=== PATIENT | male | born 1940 | race Caucasian/White ===

== ENCOUNTER → 2016-08-23 | Outpatient (CLI) | payer OTHER ==
[~2016-08-23] MED LIST: ACET-1256 PO; CLX/20 PO; HYDR-5688 PO; NRN100 PO; PANT40TA PO; PRS5 PO; TAMS0.4C38 PO
[2016-08-23 15:19] LABS: ALT/SGPT 24 U/L (12-78); AST/SGOT 16 U/L (15-37); BLOOD UREA NITROGEN 17 mg/dl (7-18); BUN/CREATININE RATIO 17.3 (10-20); CALCIUM 9.3 mg/dl (8.5-10.1); CARBON DIOXIDE 27 mmol/L (21-32); CHLORIDE 106 mmol/L (98-107); CREATININE 0.99 mg/dl (0.60-1.40); GLUCOSE 98 mg/dl (70-99); POTASSIUM 3.9 mmol/L (3.5-5.1); SODIUM 140 mmol/L (136-145)
[2016-08-23 15:21] LABS: CHOLESTEROL 183 mg/dl (0-200); CHOLESTEROL/HDL RATIO 4.2; HDL CHOLESTEROL 44 mg/dl; LDL CHOLESTEROL CALCULATED 107 mg/dl; TRIGLYCERIDES 161 mg/dl (0-150); VERY LOW DENSITY LIPOPROT CALC 32 mg/dl
== END | disposition home or self-care (01) ==
LOC: C.LABMFLN 09:00
PROVIDERS: ATTEND Family Medicine
DX: E78.00 Pure hypercholesterolemia, unspecified (principal); G62.9 Polyneuropathy, unspecified

== ENCOUNTER → 2017-03-30 | Outpatient (CLI) | payer OTHER ==
--- NOTE | 2017-03-30 13:44 | DIAGNOSTIC IMAGING REPORT ---
RIGHT SHOULDER MRI HISTORY: RT SHOULDER PAIN TECHNIQUE: Multiplanar multisequence MRI of the right shoulder was performed without contrast. COMPARISON STUDY: None. FINDINGS: AC joint: Moderate AC joint arthrosis demonstrated by cartilage space narrowing and marginal osteophytes. Rotator cuff: Evidence for prior repair of the distal supraspinatus tendon. There is a increase signal within the residual infraspinatus and supraspinatus tendons consistent with tendinopathy. There is also focal full-thickness split tear involving the proximal supraspinatus tendon which measures 15 x 15 mm. Small focal full-thickness tears of the anterior fibers of the distal infraspinatus tendon. The teres minor tendon is grossly intact. There is near complete fatty atrophy of the subscapularis muscle with irregularity of the subscapularis tendon suggestive of chronic tears. There is moderate fatty atrophy of the infraspinatus and supraspinatus muscles. Labrum: Irregularity and abnormal signal within the superior labrum consistent with a SLAP tear. Biceps tendon: The long head of the biceps tendon is identified within the proximal bicipital groove but does not extend into the intra-articular location. Therefore, this is consistent with a full-thickness tear with retraction. Bones: No acute fracture or dislocation. Osteophytes at the glenohumeral joint. Mild superior subluxation of the humeral head in relation to the glenoid consistent with a chronic rotator cuff injury. This results in narrowing of the subacromial space. Cartilage: Near full-thickness cartilage loss within the superior glenoid. There is also full-thickness cartilage loss throughout the majority of the humeral head. Miscellaneous: Trace joint fluid. IMPRESSION: 1. Evidence for prior rotator cuff repair with screws fixing the distal supraspinatus tendon. 2. Focal split tear within the proximal supraspinatus tendon. 3. Small focal full-thickness tears of the distal infraspinatus tendon. 4. Chronic tear/tendinopathy of the subscapularis tendon. 5. SLAP tear. 6. 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 7. Full-thickness tear of the long head of the biceps tendon which is retracted into the proximal bicipital groove. Electronically signed by: Kelvin Guidry M.D. 03/30/2017 1:42 PM Dictated Date/Time: 03/30/2017 1:29 PM
== END | disposition home or self-care (01) ==
LOC: C.MRIBC 12:39
PROVIDERS: ATTEND Orthopaedic Surgery
DX: M75.101 Unspecified rotator cuff tear or rupture of right shoulder, not specified as traumatic (principal); S46.811A Strain of other muscles, fascia and tendons at shoulder and upper arm level, right arm, initial encounter; S46.101A Unspecified injury of muscle, fascia and tendon of long head of biceps, right arm, initial encounter; M19.011 Primary osteoarthritis, right shoulder; X58.XXXA Exposure to other specified factors, initial encounter

== ENCOUNTER 2017-07-01 09:16 | Observation (INO) | payer OTHER ==
[2017-06-13 12:08] VITALS: BMI 27.0
--- NOTE | 2017-06-13 12:38 | PAT Medication Instructions ---
Service Date Jun 13, 2017. Current Home Medication List Acetaminophen (Tylenol), 500 MG PO HS Cyanocobalamin (Vitamin B12), 1,000 MCG PO QAM Finasteride (Proscar), 5 MG PO QAM Hydrocodone/Acetaminophen 5MG/325MG ([place] 5MG/325MG), 1 TABLET PO PRN PRN for Pain Melatonin (Melatonin Maximum Strengt), 1 TAB PO HS Pantoprazole (Protonix), 40 MG PO QAM Tamsulosin Hcl (Flomax), 1 CAP PO Q2D [Coq10], 1 TAB PO Q2D [Curcumin], 1 TAB PO QAM [Triamcinalone Acet], 1 DOSE TOP PRN Medication Instructions For Your Scheduled Surgery - Hold the following medications 2 weeks prior to surgery: [Curcumin], 1 TAB PO QAM [Coq10], 1 TAB PO Q2D - Hold the following medications 24 hours prior to surgery: [Triamcinalone Acet], 1 DOSE TOP PRN - Hold the following medications the morning of surgery: Tamsulosin Hcl (Flomax), 1 CAP PO Q2D Cyanocobalamin (Vitamin B12), 1,000 MCG PO QAM Finasteride (Proscar), 5 MG PO QAM - Take the following medications the morning of surgery with a sip of water: Pantoprazole (Protonix), 40 MG PO QAM Hydrocodone/Acetaminophen 5MG/325MG ([place] 5MG/325MG), 1 TABLET PO PRN PRN for Pain (okay to take up to4 hours prior to surgery if needed) - Take the following medications as scheduled the night before surgery: Melatonin (Melatonin Maximum Strengt), 1 TAB PO HS Hydrocodone/Acetaminophen 5MG/325MG ([place] 5MG/325MG), 1 TABLET PO PRN PRN for Pain Acetaminophen (Tylenol), 500 MG PO HS If you have any questions please call us at [phone] or [phone] or [phone]
--- NOTE | 2017-06-13 13:23 | DIAGNOSTIC IMAGING REPORT ---
CHEST 2 VIEWS ROUTINE HISTORY: 76 years-old Male pat preoperative exam. No acute chest complaints. COMPARISON: Chest radiograph 7 12/12/2014 TECHNIQUE: PA and lateral views of the chest FINDINGS: Spine one hilar silhouettes are within normal limits. Atherosclerosis of the aorta. The lungs are mildly hyperinflated. There is no pneumothorax, pleural effusion, focal airspace consolidation or overt pulmonary edema. Bones of the chest appear grossly intact. IMPRESSION: Mild hyperinflation without acute process. The above report was generated using voice recognition software. It may contain grammatical, syntax or spelling errors. Electronically signed by: Cale Mcdonald M.D. 06/13/2017 1:21 PM Dictated Date/Time: 06/13/2017 1:20 PM
[2017-06-13 14:44] LABS: BASO % 0.8 %; BASO ABS # 0.04 K/uL (0-0.2); HEMATOCRIT 47.2 % (42-52); HEMOGLOBIN 16.7 g/dL (14.0-18.0); IG# 0.01 K/uL (0.00-0.02); LYMPH % 27.3 %; LYMPH ABS # 1.36 K/uL (1.2-3.4); MEAN CELL VOLUME 89.2 fL (80-100); MEAN CORPUSCULAR HEMOGLOBIN 31.6 pg (25-34); MEAN CORPUSCULAR HGB CONC 35.4 g/dl (32-36); MONO % 8.2 %; MONO ABS # 0.41 K/uL (0.11-0.59); NEUT % 61.5 %; NEUT ABS # 3.07 K/uL (1.4-6.5); PLATELET COUNT 213 K/uL (130-400); RED CELL DISTRIBUTION WIDTH CV 12.6 % (11.5-14.5); RED CELL DISTRIBUTION WIDTH SD 40.9 fL (36.4-46.3); WHITE BLOOD COUNT 4.99 K/uL (4.8-10.8)
[2017-06-13 14:55] LABS: PTT PATIENT 25.2 SECONDS (21.0-31.0)
[2017-06-13 15:48] LABS: CALCIUM 9.8 mg/dl (8.5-10.1); CREATININE 1.06 mg/dl (0.60-1.40); POTASSIUM 5.1 mmol/L (3.5-5.1)
--- NOTE | 2017-06-30 06:50 | HISTORY & PHYSICAL EXAMINATION ---
DATE OF ADMISSION: 07/01/2017 CHIEF COMPLAINT: Cuff arthropathy of the right shoulder. HISTORY OF PRESENT ILLNESS: Arpan is a pleasant 77-year-old male presenting with a several year history of right shoulder pain. Initially, he fell back in 2013 and underwent a rotator cuff repair by Dr. Bautista. After the surgery, he did fall into his shoulder and has been having mild shoulder pain since. His shoulder pain has gotten much worse recently. MRI and clinical examination were diagnostic for rotator cuff arthropathy of the right shoulder. After failing extensive conservative treatment, he has elected to proceed with a reverse right shoulder arthroplasty. PAST MEDICAL HISTORY: Significant for GERD and BPH. MEDICATIONS: Include Protonix 40 mg daily, Flomax 0.4 mg daily, finasteride 5 mg daily, hydrocodone as needed for pain. SOCIAL HISTORY: Denies any tobacco, alcohol or IV drug use. He remains active. FAMILY HISTORY: Denies. ALLERGIES: BACTRIM AND PREDNISONE. PAST SURGICAL HISTORY: Significant for a right total knee arthroplasty in 1995, hernia repair, cervical fusion at C3-4 in 2000 and a left total knee arthroplasty in 2014. REVIEW OF SYSTEMS: He complains mostly of right shoulder pain and weakness. All other pertinent review of systems are negative. PHYSICAL EXAMINATION: GENERAL: He is a well-developed, well-nourished male in no apparent distress. HEENT: Pupils equal, round and reactive to light. Extraocular motion intact. Oral mucosa is pink and moist. HEART: Regular rate per radial pulse. LUNGS: Yelena symmetrically bilaterally with no audible breath sounds. ABDOMEN: Soft, nontender, nondistended. MUSCULOSKELETAL: On physical examination the shoulder actively has about 120 degrees of forward elevation, 100 degrees of abduction. He has 3/5 muscle strength with full can testing and close to 5/5 muscle strength with external rotation. Negative bear hug and belly press test. He has a lot of pain in the subacromial space and pain over the anterior glenohumeral joint line. IMAGING DATA: MRI imaging of the shoulder does show a re-rupture of the supraspinatus. The interspace and subscapularis appear to be intact. There is advanced osteoarthritis of the humeral head and the glenoid. There is some superior migration of the humeral head. IMPRESSION: Rotator cuff arthropathy of the right shoulder. PLAN: We will proceed with a Biomet comprehensive reverse right shoulder arthroplasty. Postoperatively, he will be placed in an arm sling and kept overnight for postoperative medical management.
[~2017-07-01] VITALS: Ht 175.3 cm; Wt 83.6 kg
[2017-07-01] VITALS (7 sets, daily range): BP systolic 119–149; BP diastolic 58–82; PULSE 53–73; TEMP 36.3–36.7; O2SAT 92–96; Ht 175.3 cm; Wt 83.6 kg
[~2017-07-01 09:16] MED LIST changes: +ACETAMINOPHEN 500 MG TAB PO SCH; +ATROPINE SULFATE 0.1 MG/ML 5ML SYR IV PRN; +CEFAZOLIN 2000MG IV PUSH 15 ML IV SCH; -CLX/20 PO; +COQ10 PO; +CURCUMIN PO; +CYAN100020 PO; +EpHEDrine SULFATE INJ 50 MG/ML AMP IV PRN; +FAMOTIDINE 20 MG TAB PO SCH; +FENTANYL CITRATE INJ 50 MCG/1 ML 2 ML VIAL IV PRN; +FINA5TAB PO; +GABAPENTIN 300 MG CAP PO SCH; +HYDROmorphone INJ 1 MG/ML SYR IV PRN; +LACTATED RINGER'S 1000ML 1,000 ML IV SCH; +LACTATED RINGER'S 1000ML IV SCH; +MELATAB2 PO; -NRN100 PO; +ONDANSETRON INJ 2 MG/ML 2 ML VIAL IV PRN; +PHENYLEPHRINE 100MCG/ML 5ML SYR IV PRN; -PRS5 PO; +ROPIVACAINE 0.5% 5 MG/ML 30 ML VIAL ONE; +ROPIVACAINE 5MG/ML 30 ML 150 MG, BUPIVACAINE 0.5% MPF INJ 30 ML, EpINEphrine HCL INJ 0.... INFIL SCH; +TRIAMCINOLONE TOP
[2017-07-01 10:02] LABS: PTT PATIENT 25.7 SECONDS (21.0-31.0)
[2017-07-01 10:12] LABS: CALCIUM 9.3 mg/dl (8.5-10.1); CREATININE 1.02 mg/dl (0.60-1.40)
[2017-07-01] MEDS ORDERED: ORTHO JOINT ANESTHETIC ONE (10:40)
[2017-07-01] MEDS ORDERED: BACITRACIN 50000 UNIT VIAL ONE (10:41)
[2017-07-01] MEDS ORDERED: FENTANYL CITRATE INJ 50 MCG/1 ML 2 ML VIAL ONE ×2 (10:49→12:30)
[2017-07-01] MEDS ORDERED: MIDAZOLAM HCL 1 MG/ML 2ML VIAL ONE (10:49)
--- NOTE | 2017-07-01 11:29 | History & Physical Bridge Note ---
H&P Re-Evaluation Bridge Note: I have examined the patient, reviewed the History & Physical and in the interval since the performance of the History & Physical I have noted the following changes of clinical significance: No changes noted
[2017-07-01] MEDS ORDERED: HYDROmorphone INJ 2 MG/ML SYR/VIAL ONE ×2 (13:12→13:24)
[2017-07-01] MEDS ORDERED: PHENYLEPHRINE 100MCG/ML 5ML SYR ONE (13:17)
[2017-07-01] MEDS ORDERED: EpHEDrine SULFATE 50MG/5ML SYR ONE (13:17)
[2017-07-01] MEDS ORDERED: LIDOCAINE HCL 2% 2 ML VIAL (20MG/ML) ONE (13:17)
[2017-07-01] MEDS ORDERED: PROPOFOL IV EMULSION 10 MG/ML 20 ML VIAL IV ONE (13:17)
[2017-07-01] MEDS ORDERED: ROCURONIUM BROMIDE 10 MG/ML 5 ML VIAL IV ONE (13:17)
[2017-07-01] MEDS ORDERED: ONDANSETRON INJ 2 MG/ML 2 ML VIAL ONE ×2 (13:17→13:43)
--- NOTE | 2017-07-01 13:17 | [facility] Post Operative Brief Note ---
Immediate Operative Summary Operative Date Jul 01, 2017. Pre-Operative Diagnosis Cuff arthropathy of the right shoulder. Post-Operative Diagnosis Cuff arthropathy of the right shoulder. Procedure(s) Performed Right Reverse Total Shoulder Arthroplasty Surgeon Dr. Singh Machine Ii Coremaker Surgeon(s) Milton Salazar PA-C Estimated Blood Loss 200cc Findings Consistent with Post-Op Diagnosis Specimens A: right humeral head Drains None Anesthesia Type General Regional Complication(s) none Disposition Disposition: Recovery Room / PACU
[2017-07-01] MEDS ORDERED: MoRPHine SULFATE 2 MG/ML CARP IV PRN (13:30)
[2017-07-01] MEDS ORDERED: CEFAZOLIN IV 2,000 MG in DEXTROSE 5% 50ML 50 ML IV SCH (13:30)
[2017-07-01] MEDS ORDERED: ONDANSETRON INJ 2 MG/ML 2 ML VIAL IV PRN (13:30)
[2017-07-01] MEDS ORDERED: SOD PHOSPHATE/SOD BIPHOSPHATE ENEMA 132 ML BTL PR PRN (13:30)
[2017-07-01] MEDS ORDERED: NALOXONE HCL 0.4 MG/1 ML VIAL/CARP IV PRN (13:30)
[2017-07-01] MEDS ORDERED: BISACODYL 10 MG SUPP PR PRN (13:30)
[2017-07-01] MEDS ORDERED: METOCLOPRAMIDE HCL INJ 5 MG/ML 2 ML VIAL IV PRN (13:30)
[2017-07-01] MEDS ORDERED: MAGNESIUM HYDROXIDE SUSP 30 ML UDC PO PRN (13:30)
[2017-07-01] MEDS ORDERED: GLYCOPYRROLATE INJ 0.2 MG/ML VIAL ONE (13:43)
[2017-07-01] MEDS ORDERED: KETOROLAC TROMETHAMINE 30 MG/ML VIAL ONE (13:43)
[2017-07-01] MEDS ORDERED: NEOSTIGMINE METHYLSULFATE 1 MG/ML 10ML VIAL ONE (13:43)
--- NOTE | 2017-07-01 13:59 | DIAGNOSTIC IMAGING REPORT ---
R SHOULDER MIN 2 VIEWS ROUTINE HISTORY: 77 years-old Male Post shoulder surgery status post right shoulder arthroplasty. Degenerative joint disease COMPARISON: Right shoulder radiographs 03/30/2017 TECHNIQUE: 2 views of the right shoulder FINDINGS: Postoperative changes from recent right shoulder reverse total joint arthroplasty. Moderate degenerative changes about the AC joint. Alignment appears satisfactory. Skin sergey are noted in addition to expected postsurgical soft tissue swelling and deep tissue air. Lung alvarez appear hypoinflated. IMPRESSION: Reverse right shoulder total joint arthroplasty with satisfactory alignment. The above report was generated using voice recognition software. It may contain grammatical, syntax or spelling errors. Electronically signed by: Cale Mcdonald M.D. 07/01/2017 1:57 PM Dictated Date/Time: 07/01/2017 1:56 PM
--- NOTE | 2017-07-01 14:14 | Anesthesiology Progress Note ---
Anesthesia Post Op Note Date & Time Jul 01, 2017 at 14:14 Vital Signs Pain Intensity: 0 Vital Signs Past 12 Hours Date Time Temp Pulse Resp B/P (MAP) Pulse Ox O2 Delivery O2 Flow Rate FiO2 07/01/17 14:03 79 18 86 07/01/17 14:03 78 18 07/01/17 14:02 151/75 07/01/17 14:01 36.3 77 20 151/75 (88) 96 Nasal Cannula 2 07/01/17 13:58 79 19 94 07/01/17 13:58 79 19 07/01/17 13:57 81 16 07/01/17 13:57 81 16 07/01/17 13:57 80 16 106/86 96 07/01/17 13:57 80 16 106/86 96 07/01/17 13:52 74 16 97 07/01/17 13:52 74 16 07/01/17 13:52 74 16 97 07/01/17 13:52 74 16 07/01/17 13:51 150/87 07/01/17 13:51 150/87 07/01/17 13:47 76 18 97 07/01/17 13:47 70 18 07/01/17 13:47 76 18 97 07/01/17 13:47 70 18 07/01/17 13:46 154/87 07/01/17 13:46 154/87 07/01/17 13:42 81 18 07/01/17 13:42 81 18 07/01/17 13:42 82 18 158/75 97 07/01/17 13:42 82 18 158/75 97 07/01/17 13:38 154/74 07/01/17 13:38 154/74 07/01/17 13:37 82 19 07/01/17 13:37 82 19 98 07/01/17 13:37 36.1 81 16 154/74 (104) 97 Oxymask 10 07/01/17 13:37 82 19 07/01/17 13:37 82 19 98 07/01/17 09:53 36.5 64 18 149/82 96 Room Air Notes Mental Status: alert / awake / arousable, participated in evaluation Pt Amnestic to Procedure: Yes Nausea / Vomiting: adequately controlled Pain: adequately controlled Airway Patency, RR, SpO2: stable & adequate BP & HR: stable & adequate Hydration State: stable & adequate Anesthetic Complications: no major complications apparent
[2017-07-01] MEDS ORDERED: IV FLUIDS COMPLETED PRN (15:45)
[2017-07-01] MEDS: POTASSIUM CHLORIDE INJ 10 MEQ in SODIUM CHLORIDE 0.9% 1000ML 1,000 ML IV SCH (16:31)
--- NOTE | 2017-07-01 16:33 | OPERATIVE REPORT ---
DATE OF OPERATION: 07/01/2017 PREOPERATIVE DIAGNOSIS: Cuff arthropathy of the right shoulder. POSTOPERATIVE DIAGNOSIS: Same. PROCEDURE: Right reverse total shoulder arthroplasty. SURGEON: Dr. Franko Singh. DIALYSIS CLINICAL MANAGER: Tomi Salazar PA-C, whose assistance was necessary for retraction and closure. ANESTHESIA: General with a right interscalene nerve block. COMPLICATIONS: None. CONDITION: Stable to PACU. IMPLANTS USED: I used a Biomet comprehensive reverse right shoulder arthroplasty system with a size 25-mm mini baseplate, a 36-mm standard eccentric glenosphere, a standard humeral tray and bearing. A 30-mm central screw and a size 15 press fit mini stem. INDICATIONS: Arpan is a pleasant 77-year-old male who has a history of previous rotator cuff repair. Unfortunately, he fell after his replacement, and has never had good motion with the shoulder. When he came to my office, an MRI showed a cuff arthropathy with tears of the supraspinatus and subscapularis. After failing conservative treatment, he elected to undergo reverse shoulder arthroplasty. DESCRIPTION OF PROCEDURE: On 07/01/2017, he arrived at [facility] for the above procedure. He was seen in the preoperative holding area and the operative extremity was identified and signed. He was given a preoperative antibiotic and a right interscalene nerve block. He was taken back to the operating room, laid on the table in supine position and put under general anesthesia. He was put into the beach chair position. The right shoulder was prepped and draped in sterile fashion. Time-out was done. The patient and the operative extremity was properly identified. A deltopectoral approach was used. Dissection was taken down through the fascia and the anterior shoulder was exposed. The long head of the biceps tendon was tenodesed to the upper border of the pec major. The subscapularis was already torn off as well as the supraspinatus. The humeral head was easily delivered out of the wound. Sequential reaming up to a size 15 reamer was done. Off that reamer, a proximal humeral resection guide was placed and the proximal humerus was resected 135 degrees of inclination and 20 degrees of retroversion. The glenoid was then exposed. Time was spent doing a complete circumferential capsular and labral release. The Biomet glenoid guide was then placed in the inferior aspect of the glenoid and a guide pin was placed at 10 degrees of inclination. A 25-mm mini baseplate was then reamed and the final baseplate was impacted into place. A single 30-mm central screw was placed and got an excellent bite. Superior and inferior locking screws were then placed. A 36-mm eccentric glenosphere was then impacted into place. The proximal humerus was exposed. Sequential broaching up to a size 15 broach was done. Off that broach, a standard humeral tray was trialed. The shoulder was reduced, brought through a full range of motion and felt to be stable. The shoulder was then dislocated and the broach was removed. The final humeral stem was then impacted into place. The humeral bearing was snapped onto the humeral tray and that was impacted onto the humeral stem. The shoulder was then reduced, brought through full range of motion and felt to be stable. There was no quality subscapularis to tenodese back to the lesser tuberosity. The surrounding soft tissues were injected with 100 mL of an orthopedic pain control cocktail. The wound was then irrigated with 3 liters normal saline solution with bacitracin. The skin was closed with 2-0 Vicryl, 3-0 V-Loc suture and sergey. He was placed in a soft dressing and a regular arm sling. He was then extubated, transferred to a litter and taken to the postanesthesia care unit in stable condition. He tolerated the procedure well. I attest to the content of the Intraoperative Record and any orders documented therein. Any exception s are noted below.
[2017-07-01] MEDS: KETOROLAC TROMETHAMINE 15 MG/ML VIAL IV. SCH (17:58)
[2017-07-01] MEDS: DOCUSATE SODIUM 100 MG CAP PO SCH (20:29)
[2017-07-01] MEDS: CEFAZOLIN IV 2,000 MG in SYRINGE 0 ML IV SCH (20:29)
[2017-07-01] MEDS ORDERED: SENNA 8.6 MG TAB PO SCH (21:00)
[2017-07-02] MEDS: KETOROLAC TROMETHAMINE 15 MG/ML VIAL IV. SCH ×2 (00:35→05:51)
[2017-07-02] MEDS: POTASSIUM CHLORIDE INJ 10 MEQ in SODIUM CHLORIDE 0.9% 1000ML 1,000 ML IV SCH (02:23)
[2017-07-02 03:46] VITALS: BP 123/62; PULSE 74; TEMP 36.7; O2SAT 90
[2017-07-02] MEDS: CEFAZOLIN IV 2,000 MG in SYRINGE 0 ML IV SCH (04:15)
[2017-07-02 06:14] LABS: HEMOGLOBIN 14.5 g/dL (14.0-18.0); MEAN CELL VOLUME 89.1 fL (80-100); MEAN CORPUSCULAR HEMOGLOBIN 31.5 pg (25-34); MEAN CORPUSCULAR HGB CONC 35.4 g/dl (32-36); MEAN PLATELET VOLUME 9.6 fL (7.4-10.4); PLATELET COUNT 205 K/uL (130-400); RED CELL DISTRIBUTION WIDTH CV 12.7 % (11.5-14.5); WHITE BLOOD COUNT 10.03 K/uL (4.8-10.8)
[2017-07-02 06:49] LABS: CALCIUM 8.9 mg/dl (8.5-10.1)
[2017-07-02 08:19] VITALS: BP 138/85; PULSE 83; O2SAT 96
[2017-07-02] MEDS: DOCUSATE SODIUM 100 MG CAP PO SCH (08:51)
[2017-07-02] MEDS ORDERED: TAMSULOSIN HCL 0.4 MG CAP PO SCH (09:00)
[2017-07-02] MEDS ORDERED: PANTOprazole SOD 40 MG TAB PO SCH (09:00)
[2017-07-02] MEDS ORDERED: FINASTERIDE 5 MG TAB PO SCH (09:00)
[2017-07-02] MEDS ORDERED: MULTIVITAMIN TAB PO SCH (09:00)
[2017-07-02] MEDS ORDERED: HYDR-5688 PO (10:23)
--- NOTE | 2017-07-02 10:24 | Discharge Instructions ---
Discharge Instructions Date of Service Jul 02, 2017. Admission Reason for Admission: Right Shoulder Degenerative Joint Disease Discharge Discharge Diagnosis / Problem: Right Reverse Shoulder Discharge Goals Goal(s): Decrease discomfort, Improve function Activity Recommendations Activity Limitations: as noted below . Instructions / Follow-Up Instructions / Follow-Up Activity and Therapy Recommendations: * Wear your sling for 3 weeks, unless otherwise instructed. You may remove your sling to shower and to dress, but otherwise, you should be in your sling at all times, including while sleeping * The shoulder replacement is very stable and you can use your hand while in the sling * Physical Therapy should start about 3-5 days from your day of surgery. Therapy will last about 8-12 weeks * You were shown a series of exercises in the hospital. Do these exercises daily including the exercises you were shown in physical therapy. Medications: * Narcotic You will likely be sent home from the hospital with a prescription for the narcotic pain medication that worked best throughout your stay. * Other medications may be prescribed for specific circumstances. If you have any questions, please call the office at . * Resume previous home medications unless otherwise instructed Dressing Care: If the incision is not draining then you may leave the sergey open to air. If there is a little bit of drainage or if the sergey are getting stuck on your clothing then cover the incision with a dry dressing. The sergey will be removed at your 2 week follow-up appointment. Showering: You may shower 5 days from the day of surgery. Let the soapy shower water run over the sergey and pat them dry. Do not scrub or soak the incision. Things To Watch For: * Drainage from the incision site that occurs more than one week after your surgery. * Increased redness at the incision site. * Fever above 102 degrees Fahrenheit. * Unusual chest pain or shortness of breath. * Call [facility] at with any of the above problems Follow-Up Visit: Follow-up with Dr. Singh 2 weeks after your day of surgery. An appointment was probably scheduled when you signed-up for surgery in the office. If you have any questions call Office Instructions: More detailed instructions as well as Frequently Asked Questions were provided in a folder by our office when you signed-up for surgery. Please review these instructions when you get home. If you have any further questions or concerns, please feel free to call the office at [phone] Current Hospital Diet Patient's current hospital diet: Regular Diet Discharge Diet Recommended Diet: Regular Diet Procedures Procedures Performed: Right Reverse Total Shoulder Arthroplasty Pending Studies Studies pending at discharge: no Medical Emergencies . Who to Call and When: Medical Emergencies: If at any time you feel your situation is an emergency, please call 911 immediately. . Non-Emergent Contact Non-Emergency issues call your: Surgeon Call Non-Emergent contact if: wound has increased drainage, wound has increased redness . "Provider Documentation" section prepared by Franko Singh. .
[2017-07-02] MEDS: HYDROCODONE/ACETAMIN 5/325MG TAB PO PRN ×2 (10:31→11:06)
[2017-07-02 10:42] VITALS: BP 138/85; PULSE 83; TEMP 36.7; O2SAT 96
--- NOTE | 2017-07-02 10:50 | PROGRESS NOTE ---
DATE: 07/02/2017 CHIEF COMPLAINT: Status post right reverse shoulder arthroplasty, postop day #1. PROGRESS: He was seen and examined at bedside today. Overall, he is doing very well. He has very little pain in the shoulder. He did not get much sleep last night. He has no other complaints. PHYSICAL EXAMINATION: RIGHT SHOULDER: He is wearing a sling as instructed. His dressing is clean and dry. H has a little ecchymosis around the shoulder. His radial, median and ulnar nerves are checked and intact. His axillary nerve was not checked yet. LABORATORY DATA: He has an H&H today of 14.5 and 41.0. His glucose is 113. His vital signs are all stable on room air and he is avoiding on his own. X-rays of the right shoulder postoperatively show the prosthesis to be in anatomic alignment without any evidence of fracture, dislocation or loosening. IMPRESSION: Status post reverse right shoulder arthroplasty, postop day #1. PLAN: At this point, he is doing well. I answered his questions at bedside regarding pain medications and physical therapy. He will be seen by physical therapy today and do hand, wrist, elbow and pendulum exercises. The nursing staff can discharge him to home later this morning.
--- NOTE | 2017-07-03 10:23 | DISCHARGE SUMMARY ---
DISCHARGE DIAGNOSIS: Rotator cuff arthropathy of the right shoulder. PROCEDURE: Right reverse shoulder arthroplasty on 07/01/[address] Franko Singh. DISCHARGE INSTRUCTIONS: 1. Tylenol 500 mg at night. 2. Vitamin B12 1000 mcg daily. 3. Proscar 5 mg daily. 4. [place] 5/325 as needed for pain. 5. Melatonin 5 mg at night. 6. Protonix 40 mg daily. 7. Flomax 0.4 mg daily. 8. Follow up with Dr. Singh in 2 weeks. 9. Right arm sling for 3 weeks. 10. Call the office of Dr. Singh with any questions or concerns. HOSPITAL COURSE: Arpan is a pleasant 77-year-old male who presented to my office with chronic increasing right shoulder pain. He did have a history of a rotator cuff repair in the past. MRI showed an unrepairable rotator cuff. After failing conservative treatment, he elected to undergo a reverse right shoulder arthroplasty. On 07/01/2017, he arrived at [facility] and underwent a reverse right shoulder arthroplasty without complication. He had a general anesthetic and a right interscalene nerve block. Postoperatively, he was discharged to general orthopedic floors. His hospital course was uneventful. On postop day #1, his H&H was stable at 14.5 and 41.0. His nerve block wore off. He was not having much pain in the shoulder. He was able to do hand, wrist, elbow and pendulum exercises with physical therapy. He was subsequently discharged to home with the above instructions.
== END 2017-07-02 11:55 | disposition home or self-care (01) ==
LOC: C.ACU 09:16 → C.3E 11:30 → ENRESERV 15:04
PROVIDERS: ADMIT Orthopaedic Surgery; ATTEND Orthopaedic Surgery
DX: M19.011 Primary osteoarthritis, right shoulder (principal); K21.9 Gastro-esophageal reflux disease without esophagitis; N40.0 Benign prostatic hyperplasia without lower urinary tract symptoms; Z98.890 Other specified postprocedural states; Z96.653 Presence of artificial knee joint, bilateral; Z88.1 Allergy status to other antibiotic agents; Z85.828 Personal history of other malignant neoplasm of skin; Z87.891 Personal history of nicotine dependence

== ENCOUNTER 2017-07-03 08:19 | Emergency (ER) | payer OTHER ==
[~2017-07-03] VITALS: Ht 175.3 cm; Wt 85.0 kg
[~2017-07-03 08:19] MED LIST changes: -ACETAMINOPHEN 500 MG TAB PO SCH; -ATROPINE SULFATE 0.1 MG/ML 5ML SYR IV PRN; -CEFAZOLIN 2000MG IV PUSH 15 ML IV SCH; -EpHEDrine SULFATE INJ 50 MG/ML AMP IV PRN; -FAMOTIDINE 20 MG TAB PO SCH; -FENTANYL CITRATE INJ 50 MCG/1 ML 2 ML VIAL IV PRN; -GABAPENTIN 300 MG CAP PO SCH; -HYDROmorphone INJ 1 MG/ML SYR IV PRN; -LACTATED RINGER'S 1000ML 1,000 ML IV SCH; -LACTATED RINGER'S 1000ML IV SCH; -ONDANSETRON INJ 2 MG/ML 2 ML VIAL IV PRN; -PHENYLEPHRINE 100MCG/ML 5ML SYR IV PRN; -ROPIVACAINE 0.5% 5 MG/ML 30 ML VIAL ONE; -ROPIVACAINE 5MG/ML 30 ML 150 MG, BUPIVACAINE 0.5% MPF INJ 30 ML, EpINEphrine HCL INJ 0.... INFIL SCH
[2017-07-03 08:23] VITALS: BP 152/81; PULSE 88; TEMP 36.9; O2SAT 96; Ht 175.3 cm; Wt 85.0 kg
--- NOTE | 2017-07-03 08:47 | EMERGENCY ROOM VISIT NOTE ---
History Report prepared by [place]: Tomi Garcia Under the Supervision of: Dr. Jama Dupree D.O. First contact with patient: 08:26 Chief Complaint: URINARY SYMPTOMS Stated Complaint: URINARY INFECTION?? R SHOULDER REPLACEMENT 07/01 Nursing Triage Summary: pt reports total shoulder surg. on fri. started last night with frequent urination and burning with urination, denies blood History of Present Illness The patient is a 77 year old male who presents to the Emergency Room with complaints of an intermittent urgency to urinate beginning 9.5 hours ago. The patient states he went to sleep 9.5 hours ago and woke up about 6 times throughout the night to urinate. He reports he would wake up, need to urinate, get to the restroom, and then not be able to urinate. The patient notes his symptoms worsened when he stood up, and he would occasionally 'leak' some urine. He states there was one time when he spent 30 minutes trying to urinate at one point and could only produce about a teaspoon of urine. The patient reports he was discharged from the hospital yesterday after experiencing right shoulder surgery. He notes he was under anesthesia for 50 minutes, and he did not have a catheter. The patient states he drank copious amounts of water yesterday. He reports he does not have a history of a UTI, and he was given one dose of antibiotics prior to discharge. The patient notes he did not have trouble producing a urine sample in the ED, and he produced a normal amount of urine. He denies any other complaints. Source of History: patient Onset: 9.5 hours ago Quality: other (urgency to urinate) Timing: intermittent Modifying Factors (Worsening): other (standing) Note: Denies any other complaints. Review of Systems See HPI for pertinent positives & negatives. A total of 10 systems reviewed and were otherwise negative. Past Medical & Surgical Medical Problems: (1) Rotator cuff tear arthropathy of right shoulder Family History Patient reports no known family medical history. Social History Smoking Status: Never Smoker Marital Status: Housing Status: lives with significant other Occupation Status: retired Current/Historical Medications Scheduled Acetaminophen (Tylenol), 500 MG PO HS Cyanocobalamin (Vitamin B12), 1,000 MCG PO QAM Finasteride (Proscar), 5 MG PO QAM Melatonin (Melatonin Maximum Strengt), 1 TAB PO HS Pantoprazole (Protonix), 40 MG PO QAM Tamsulosin Hcl (Flomax), 1 CAP PO Q2D [Coq10], 1 TAB PO DAILY [Curcumin], 1 TAB PO QAM [Triamcinalone Acet], 1 DOSE TOP PRN Scheduled PRN Hydrocodone/Acetaminophen 5MG/325MG ([place] 5MG/325MG), 1 TABLET PO PRN PRN for Pain Allergies Coded Allergies: Sulfamethoxazole w/Trimethoprim (Verified Allergy, Intermediate, RASH ITCHING, 07/01/17) Prednisone (Verified Allergy, Mild, RASH, ITCHING, 07/01/17) Physical Exam Vital Signs Date Time Temp Pulse Resp B/P (MAP) Pulse Ox O2 Delivery O2 Flow Rate FiO2 07/03/17 08:23 36.9 88 20 152/81 96 Room Air Physical Exam CONSTITUTIONAL/VITAL SIGNS: Reviewed / noted above. GENERAL: Non-toxic in appearance. INTEGUMENTARY: Warm, dry, and [place]. HEAD: Normocephalic. EYES: without scleral icterus or trauma. ENT/OROPHARYNX: clear and moist. LYMPHADENOPATHY/NECK: Is supple without lymphadenopathy or meningismus. RESPIRATORY: Lungs clear and equal. CARDIOVASCULAR: Regular rate and rhythm. GI/ABDOMEN: Soft and nontender. No organomegaly or pulsatile mass. No rebound or guarding. Normal bowel sounds. EXTREMITIES: Warm and well perfused. Ecchymosis to the right arm and shoulder area - consistent with prior surgery. BACK: No CVA tenderness. NEUROLOGICAL: Intact without focal deficits. PSYCHIATRIC: normal affect. MUSCULOSKELETAL: Normally developed with good muscle tone. Medical Decision & Procedures Laboratory Results Test 07/03/17 08:31 Urine Color YELLOW Urine Appearance CLEAR (CLEAR) Urine pH 5.0 (4.5-7.5) Urine Specific [place] 1.015 (1.000-1.030) Urine Protein NEG (NEG) Urine Glucose (UA) NEG (NEG) Urine Ketones 1+ (NEG) Urine Occult Blood NEG (NEG) Urine Nitrite NEG (NEG) Urine Bilirubin NEG (NEG) Urine Urobilinogen NEG (NEG) Urine Leukocyte Esterase NEG (NEG) Urine WBC (Auto) 0 /hpf (0-5) Urine RBC (Auto) 0-4 /hpf (0-4) Urine Hyaline Casts (Auto) 0 /lpf (0-5) Urine Epithelial Cells (Auto) 0-5 /lpf (0-5) Urine Bacteria (Auto) NEG (NEG) Laboratory results as stated above per my review. ED Course 0829: Previous medical records were reviewed. The patient was evaluated in room B03B. A complete history and physical examination was performed. 0849: On reevaluation, the patient is resting comfortably. I discussed the results and findings with the patient. 0904: I reevaluated the patient discussed the remainder of his lab results and findings. He verbalized agreement of the treatment plan. The patient was discharged home. Medical Decision Differential considered: pancreatitis, hepatitis, acute cholecystitis, AAA, UTI , pyelonephritis, kidney stones, appendicitis, diverticulitis, shingles, bowel obstruction, mesenteric ischemia, intussusception,hernia, testicular torsion. This is a 77-year-old male who presents to the ED with a chief complaint of urinary frequency and urgency through the night. The patient states that the symptoms started around 11 PM and seemed to terminate around 6 a.m. The patient states that when urinating here in the emergency department, his urine flow seemed to be normal he did not have any unusual symptoms. The patient had surgery on his right shoulder 2 days ago. He was discharged from the hospital yesterday. The patient has no additional complaints. He is currently not on antibiotics. He states that they did not place a Arreguin catheter during his ED stay. Urine dip here in the ED reveals trace ketones but otherwise was negative for any other abnormality. A urine culture has been sent. Bladder scan revealed residual 72 cc in the bladder. The patient does report that he always has some residual urine in his bladder related to his prostate. The patient was told the results of the test. He is felt to be stable for discharge. Medication Reconcilliation Current Medication List: was personally reviewed by me Blood Pressure Screening Patient's blood pressure: Elevated blood pressure Blood pressure disposition: Referred to PCP Impression Primary Impression: Symptoms involving urinary system Scribe Attestation The scribe's documentation has been prepared under my direction and personally reviewed by me in its entirety. I confirm that the note above accurately reflects all work, treatment, procedures, and medical decision making performed by me. Departure Information Dispostion Home / Self-Care Referrals Jhonny Aiken M.D. (PCP) Forms HOME CARE DOCUMENTATION FORM, IMPORTANT VISIT INFORMATION Patient Instructions My [facility] Additional Instructions Urinalysis today did not show any evidence of infection. Urine culture has been sent. This takes about 2 days to confirm or disprove infection. If symptoms persist, contact your doctor or call the ED for results of the culture. [phone] Follow-up with your doctor for further care and evaluation in 1-2 days if symptoms persist. Return to the emergency department for worsening or new symptoms or any concerns. You have been examined and treated today on an emergency basis only. This is not a substitute for, or an effort to provide, complete comprehensive medical care. It is impossible to recognize and treat all injuries or illnesses in a single emergency department visit. It is therefore important that you follow up closely with your doctor. Call as soon as possible for an appointment.
== END 2017-07-03 09:07 | disposition home or self-care (01) ==
LOC: C.EDB 08:22
DX: R39.9 Unspecified symptoms and signs involving the genitourinary system (principal); Z79.899 Other long term (current) drug therapy; Z88.2 Allergy status to sulfonamides; Z88.8 Allergy status to other drugs, medicaments and biological substances

== ENCOUNTER 2021-08-28 22:59 | Observation (INO) ==
--- NOTE | 2021-08-28 23:08 | Emergency Department Note ---
Impression & Plan Brain TIA, Loss, vision, sudden Admit to the [facility] service ED Provider Note NAME: ANTHONY SCOTT AGE: 81 SEX: M ARRIVES VIA: Walk-In INFORMANT: Patient and his ED PROVIDER(S): Hayley Lr DO CHIEF COMPLAINT: Vision changes to the left eye PLAN: Disposition: Admit to the [facility] service Condition: Fair MEDICAL DECISION MAKING: This is a 81-year-old male patient who presents to the emergency department with loss of vision to the left eye around 9 PM this evening. Intraocular pressures were 11 in both eyes. Slit-lamp examination was unremarkable. CT scan of the brain was normal. Laboratory studies were normal EKG was normal. The patient has had near complete resolution of the symptoms to the left eye but I remain concerned about TIA versus CVA involving the left eye. I discussed the case with the [facility] Hospitalist and they will evaluate for further management. Triage Nursing notes reviewed and agree with them. Additional history obtained from the patient's who accompanies him. Prior medical records reviewed Vital Signs: reviewed and remarkable for hypertension Differential diagnosis: Retinal detachment Central retinal vein occlusion Amaurosis fugax CVA TIA Diagnostics interpreted by me: ECG: Sinus bradycardia at a rate of [address] segment elevation or signs of ischemia. There is no ectopy Laboratory studies: See below Imaging studies: As per stat rad CT head: No acute or focal intracranial abnormality HPI: 81/M arrives for evaluation of vision loss. Around 9 PM this evening, the patient had gradual loss of vision in his left eye to the point that it was completely black. He states that it slowly began to close off until it was a small pinhole in the left upper outer quadrant of his field of vision that he could see through. When the vision returned, he could see through the top half of his field of vision first and then it slowly returned and he was left with what he describes as a grade out area around the 6:00 area of his field of vision. He denies ever having anything like this in the past. ROS: See above HPI for pertinent positives & negatives. A total of 6 systems reviewed and were otherwise negative. PAST MEDICAL HISTORY:See Below PAST SURGICAL HISTORY:See Below FAMILY HISTORY:See Below SOCIAL HISTORY:See Below HOME MEDICATIONS: See list ALLERGIES: See list VITALS:See Below PHYSICAL EXAMINATION: HEENT: Head - normocephalic and atraumatic Pupils are equal, round, and reactive to light. Extraocular eye muscles are intact, and sclera are anicteric. Nose - moist nasal mucosa without discharge. Mouth - moist buccal mucosa. Oropharynx is nonerythematous and there is no tonsillar exudate or edema noted. Neck: Supple; no JVD or auscultated bruits Heart: Regular rate and rhythm. There is a normal S1 and S2 with no murmurs, clicks, or gallops appreciated. Lungs: Clear to auscultation bilaterally with no wheezes, rales, or rhonchi. Abdomen: Soft, completely nontender, nondistended, with good bowel sounds. There are no palpable pulsatile masses or hepatosplenomegaly. There is no guarding, rigidity, or rebound noted. Extremities: No evidence of cyanosis, clubbing, or edema. There are easily palpable peripheral pulses. Skin: warm and dry with good turgor and no rashes. Slit Lamp Examination Indication: Loss of vision in the left eye Slit lamp examination was performed in the standard fashion. Cornea appeared clear. Anterior chamber was quiet. Scleral injection was not present. No discharge present. No foreign bodies noted. Negative Sonny sign. The patient tolerated the procedure well without complication. ED COURSE:2310 the patient was evaluated in room B9. A complete history and physical was performed. Intraocular pressures were tested and were 11 in both eyes. A slit lamp exam was performed. The patient went for CT scan of the brain Which was unremarkable. I discussed case with [facility] Hospitalist and they will evaluate for further management. Please see nursing notes for visual acuity. Hayley Lr DO Past Med/Surg History Medical History (Updated 08/29/21 @ 12:19 by Meredith Barrett MD) Arthritis Atopic dermatitis Changing skin lesion Chronic GERD Chronic rhinitis Generalized osteoarthritis History of basal cell carcinoma Insomnia Medicare annual wellness visit, subsequent Shoulder pain Tremor Surgical History History of cataract surgery History of colonoscopy History of dental surgery History of eye surgery History of hernia repair History of knee replacement BILATERAL History of knee surgery History of laryngoscopy direct laryngoscopy History of neck surgery History of repair of rotator cuff History of shoulder replacement RIGHT Status post biopsy of skin Family History Mother Cancer Other No family history of adverse response to anesthesia No family history of bleeding disorder Denies family history of Family history of deafness and hearing loss Heart disease Allergies Sinusitis Hypertension Stroke Asthma Social History Smoking Status: Former smoker Age Started Using Tobacco: 18; Age Quit Using Tobacco: 29; packs per day: 1; Second Hand Exposure: No; Hx Alcohol Use: No Hx Substance Use: No Preferred Language: Macedonian Communication Ability: Effective Hair Spinner Required: No Beliefs That Will Affect Care: None marital status: Current Living Situation: Spouse current occupational status: retired Feels Safe at Home: Yes Seatbelt Use: always Assistive Devices: Glasses and Hearing Aid - Bilateral Allergies Allergies Allergy/AdvReac Type Severity Reaction Status Date / Time Bactrim Allergy Intermediate RASH Verified 07/01/17 09:50 ITCHING sulfamethoxazole Allergy Intermediate RASH Verified 08/29/21 03:16 ITCHING trimethoprim Allergy Intermediate RASH Verified 08/29/21 03:16 ITCHING prednisone Allergy Mild RASH, Verified 08/29/21 03:16 ITCHING Home Meds Home Medications Medication Instructions Recorded Confirmed zinc 50 mg tablet 50 mg PO DAILY 05/16/20 08/29/21 acetaminophen 500 mg tablet 500 mg PO Q6H PRN 05/26/21 08/29/21 (Tylenol Extra Strength) meloxicam 15 mg tablet 15 mg PO DAILY 08/29/21 08/29/21 tamsulosin 0.4 mg capsule 0.4 mg PO .HOLD 08/29/21 08/29/21 trazodone 50 mg tablet 25 mg PO HS PRN 08/29/21 08/29/21 turmeric 400 mg capsule 0 mg PO DAILY 08/29/21 08/29/21 Previous Rx's Medication Instructions Recorded triamcinolone acetonide 0.1 % 1 appln TOP BID PRN #30 gm 08/16/19 topical cream ascorbic acid (vitamin C) 500 mg 500 mg PO DAILY #30 cap 03/03/20 capsule betamethasone dipropionate 0.05 % 1 applic TOPICAL BID PRN #15 g 03/03/20 topical cream cholecalciferol (vitamin D3) 25 1,000 unit PO DAILY #30 cap 11/23/20 mcg (1,000 unit) capsule (Vitamin D3) amlodipine 2.5 mg tablet 2.5 mg PO DAILY #90 tab 04/16/21 famotidine 40 mg tablet 40 mg PO DAILY 30 Days #90 tab 06/24/21 azelastine 137 mcg (0.1 %) nasal 2 spray INTRANASAL BID PRN #30 ml 07/24/21 spray aerosol escitalopram oxalate 5 mg tablet 5 mg PO DAILY #30 tab 07/24/21 finasteride 5 mg tablet 5 mg PO DAILY #90 tab 08/18/21 atorvastatin 40 mg tablet 40 mg PO DAILY #30 tab 08/29/21 Results & Data (ED) Vital Signs Vital Signs - 24 hr 08/28/21 23:01 08/29/21 01:00 Temperature 36.2 C L Temperature Source Temporal Artery Scan Pulse Rate 64 Pulse Rate [Finger] 56 L Pulse Rhythm [Finger] Regular Respiratory Rate 18 18 Respiratory Effort / Characteristics Non-Labored Spontaneous Non-Labored Spontaneous Respiratory Depth Normal Normal Respiratory Pattern Regular Regular Blood Pressure 185/91 H Blood Pressure [Right Arm] 176/95 H Blood Pressure Mean 122 Blood Pressure Mean [Right Arm] 122 Blood Pressure Position [Right Arm] Sitting Pulse Oximetry 98 97 Oxygen Delivery Method Room Air Room Air Sepsis Recent Fever Within 48 Hours No Sepsis New/Unexplained Change in Mental Status No Sepsis Action Taken by Nursing No Action Required Laboratory Data Result diagrams: 08/29/21 00:40 08/29/21 06:28 Lab Results 08/29/21 08/29/21 08/29/21 Range/Units 00:40 00:40 00:40 WBC 4.63 L (4.8-10.8) K/uL RBC 4.87 (4.7-6.1) M/uL Hgb 15.5 (14.0-18.0) g/dL Hct 44.3 (42-52) % MCV 91.0 (80-100) fL MCH 31.8 (25-34) pg MCHC 35.0 (32-36) g/dL RDW Std Deviation 42.6 (36.4-46.3) fL RDW Coeff of [place] 12.7 (11.5-14.5) % Plt Count 230 (130-400) K/uL MPV 9.8 (7.4-10.4) fL Immature Gran % (Auto) 0.2 % Neut % (Auto) 47.8 % Lymph % (Auto) 33.0 % Kings % (Auto) 11.2 % Eos % (Auto) 6.3 % Baso % (Auto) 1.5 % Neut # (Auto) 2.21 (1.4-6.5) K/uL Lymph # (Auto) 1.53 (1.2-3.4) K/uL [place] # (Auto) 0.52 (0.11-0.59) K/uL Eos # (Auto) 0.29 (0-0.5) K/uL Baso # (Auto) 0.07 (0-0.2) K/uL Immature Gran # (Auto) 0.01 (0.00-0.02) K/uL ESR (0-20) mm/hr PT 10.4 (9.0-12.0) Seconds INR 1.0 (0.9-1.1) APTT 25.1 (21.0-31.0) Seconds PTT Ratio 0.9 Sodium 137 (136-145) mmol/L Potassium 4.3 (3.5-5.1) mmol/L Chloride 104 (98-107) mmol/L Carbon Dioxide 25 (21-32) mmol/L Anion Gap 8 (3-11) BUN 25 H (6-23) mg/dl Creatinine 0.81 (0.6-1.4) mg/dl Est Cr Clr Drug Dosing 71.5 ml/min Est GFR ( Amer) 98.0 ml/min Est GFR (Non-Af Amer) 84.5 ml/min BUN/Creatinine Ratio 30.9 H (10-20) Glucose 102 H (70-99(Fasting)) mg/dl Calcium 9.6 (8.5-10.1) mg/dl Magnesium 2.2 (1.7-2.4) mg/dl Total Bilirubin 0.7 (0.2-1.0) mg/dl AST 18 (13-39) U/L ALT 14 (7-52) U/L Alkaline Phosphatase 51 (34-104) U/L Troponin I High Sens 5.3 (0-20) pg/ml C-Reactive Protein (0-0.5) mg/dl Total Protein 7.0 (6.0-8.3) gm/dl Albumin 4.3 (3.4-5.0) gm/dl Globulin 2.7 (2.5-4.0) gm/dl Albumin/Globulin Ratio 1.6 (0.9-2) SARS-CoV-2, RNA, NAAT (NEGATIVE) 08/29/21 08/29/21 08/29/21 Range/Units 00:40 00:40 02:01 WBC (4.8-10.8) K/uL RBC (4.7-6.1) M/uL Hgb (14.0-18.0) g/dL Hct (42-52) % MCV (80-100) fL MCH (25-34) pg MCHC (32-36) g/dL RDW Std Deviation (36.4-46.3) fL RDW Coeff of [place]zman (11.5-14.5) % Plt Count (130-400) K/uL MPV (7.4-10.4) fL Immature Gran % (Auto) % Neut % (Auto) % Lymph % (Auto) % [place] % (Auto) % Eos % (Auto) % Baso % (Auto) % Neut # (Auto) (1.4-6.5) K/uL Lymph # (Auto) (1.2-3.4) K/uL [place] # (Auto) (0.11-0.59) K/uL Eos # (Auto) (0-0.5) K/uL Baso # (Auto) (0-0.2) K/uL Immature Gran # (Auto) (0.00-0.02) K/uL ESR 6 (0-20) mm/hr PT (9.0-12.0) Seconds INR (0.9-1.1) APTT (21.0-31.0) Seconds PTT Ratio Sodium (136-145) mmol/L Potassium (3.5-5.1) mmol/L Chloride (98-107) mmol/L Carbon Dioxide (21-32) mmol/L Anion Gap (3-11) BUN (6-23) mg/dl Creatinine (0.6-1.4) mg/dl Est Cr Clr Drug Dosing ml/min Est GFR ( Amer) ml/min Est GFR (Non-Af Amer) ml/min BUN/Creatinine Ratio (10-20) Glucose (70-99(Fasting)) mg/dl Calcium (8.5-10.1) mg/dl Magnesium (1.7-2.4) mg/dl Total Bilirubin (0.2-1.0) mg/dl AST (13-39) U/L ALT (7-52) U/L Alkaline Phosphatase (34-104) U/L Troponin I High Sens (0-20) pg/ml C-Reactive Protein < 0.50 (0-0.5) mg/dl Total Protein (6.0-8.3) gm/dl Albumin (3.4-5.0) gm/dl Globulin (2.5-4.0) gm/dl Albumin/Globulin Ratio (0.9-2) SARS-CoV-2, RNA, NAAT NEGATIVE (NEGATIVE) Administered Medications Discontinued Medications Acetaminophen (Acetaminophen 325 Mg Tab) 650 mg PO Q4H PRN PRN Reason: pain/fever Stop: 09/28/21 02:09 Last Admin: 08/29/21 08:47 Dose: 650 mg Documented by: [id number] Amlodipine Besylate (Amlodipine Besylate 5 Mg Tab) 2.5 mg PO DAILY DANIEL Stop: 09/28/21 08:59 Last Admin: 08/29/21 09:58 Dose: Not Given Documented by: [id number] Atorvastatin Calcium (Atorvastatin 40 Mg Tab) 40 mg PO QAM [facility] Stop: 09/28/21 10:29 Last Admin: 08/29/21 12:21 Dose: 40 mg Documented by: [id number] Escitalopram Oxalate (Escitalopram Oxalate 10 Mg Tab) 5 mg PO DAILY DANIEL Stop: 09/28/21 08:59 Last Admin: 08/29/21 08:41 Dose: 5 mg Documented by: [id number] Famotidine (Famotidine 40 Mg Tablet) 40 mg PO DAILY DANIEL Stop: 09/28/21 08:59 Last Admin: 08/29/21 08:41 Dose: 40 mg Documented by: [id number] Finasteride (Finasteride 5 Mg Tab) 5 mg PO DAILY DANIEL Stop: 09/28/21 08:59 Last Admin: 08/29/21 08:40 Dose: 5 mg Documented by: [id number] Ioversol (Optiray 320 125ml) 120 ml IV ONCE ONE Stop: 08/29/21 03:58 Last Admin: 08/29/21 03:48 Dose: 120 ml Documented by: [id number] Meloxicam (Meloxicam 7.5 Mg Tab) 15 mg PO DAILY DANIEL Stop: 09/28/21 08:59 Last Admin: 08/29/21 09:58 Dose: Not Given Documented by: [id number] Miscellaneous (Order Awaiting Action: (Betamethasone Dipropionate 0.05 % Cream)) 1 ea N/A QS DANIEL Stop: 09/28/21 07:59 Last Admin: 08/29/21 15:06 Dose: Not Given Documented by: [id number] Admin: 08/29/21 08:32 Dose: Not Given Documented by: [id number] Vitamin D (Cholecalciferol 1,000 Units 25 Mcg Tab) 1,000 units PO DAILY DANIEL Stop: 09/28/21 08:59 Last Admin: 08/29/21 08:40 Dose: 1,000 units Documented by: [id number] Discharge Plan Visit Data Chief Complaint: Eye Problems Stated Complaint: EYE PROBLEMS ED Provider: Hayley Lr Discharge Problem: Brain TIA, Loss, vision, sudden Patient Disposition: Admitted As Inpatient Discharge Instructions Interventions: ED Discharge Assessment Last Done: 08/29/21 03:38 Discharge Problem: Loss, vision, sudden Qualifiers: Laterality: left Qualified Code(s): H53.132 - Sudden visual loss, left eye
[2021-08-29 01:01] LABS: Basophils # (auto) 0.07 K/uL (0-0.2); Basophils % (auto) 1.5 %; Eosinophils # (auto) 0.29 K/uL (0-0.5); Eosinophils % (auto) 6.3 %; Hematocrit (blood only) 44.3 % (42-52); Hemoglobin 15.5 g/dL (14.0-18.0); Immature Granulocytes # (auto) 0.01 K/uL (0.00-0.02); Immature Granulocytes % (auto) 0.2 %; Lymphocytes # (auto) 1.53 K/uL (1.2-3.4); Mean Corpuscular Hemoglobin 31.8 pg (25-34); Mean Platelet Volume 9.8 fL (7.4-10.4); Monocytes # (auto) 0.52 K/uL (0.11-0.59); Monocytes % (auto) 11.2 %; Neutrophils # (auto) 2.21 K/uL (1.4-6.5); Neutrophils % (auto) 47.8 %; Platelet Count 230 K/uL (130-400); RDW Coefficient of Variation 12.7 % (11.5-14.5); RDW Standard Deviation 42.6 fL (36.4-46.3); Red Blood Count 4.87 M/uL (4.7-6.1); White Blood Count 4.63 K/uL (4.8-10.8)
[2021-08-29 01:19] LABS: Partial Thromboplastin Ratio 0.9; Partial Thromboplastin Time 25.1 Seconds (21.0-31.0); Prothrombin Time 10.4 Seconds (9.0-12.0)
[2021-08-29 01:22] LABS: Albumin Globulin Ratio 1.6 (0.9-2); Albumin Level 4.3 gm/dl (3.4-5.0); BUN Creatinine Ratio 30.9 (10-20); Bilirubin,Total 0.7 mg/dl (0.2-1.0); Calcium 9.6 mg/dl (8.5-10.1); Creatinine Clr Calc Pharmacy 71.5 ml/min; Est GFR (Non-African American) 84.5 ml/min; Globulin 2.7 gm/dl (2.5-4.0); Magnesium 2.2 mg/dl (1.7-2.4); Potassium 4.3 mmol/L (3.5-5.1)
[2021-08-29 01:25] LABS: Troponin I High Sensitivity 5.3 pg/ml (0-20)
--- NOTE | 2021-08-29 02:01 | History & Physical Report ---
Date of Service August 29, 2021 Assessment & Plan (1) Transient visual loss: Plan: 81yoM with history of HLD, HTN, BPH, bilateral cataract corrections "years ago " who presented for painless vision loss in his L eye. Transient Vision Loss of LEFT Eye - Presenting with unilateral L sided painless vision loss that initially manifested as sparing of the superior temporal quadrant, followed by both superior quadrants, and subsequent return of vision with some "blurriness" in his central vision - Work-up as follows: - CT-H (STAT-Rad): Negative for acute processes or masses per STAT-Rad - POC US (ED Provider): No e/o retinal detachment - IOP is 11mmHg b/l - ESR/CRP wnl - Concerning for CVA/TIA in the retinal or chiasmal circulation. Lower suspicion for MS but considered. No h/o GCA and ESR/CRP negative. Retinal detachment ruled-out in ED with POC US. - Check CTA Head and Neck to evaluate vasculature - Check MRI Brain w/o contrast to evaluate for ischemia - Permissive HTN until further imaging is completed - Check lipids, A1c in the AM - Neurochecks q4h - Pending stroke work-up: consider PT, OT, TTE - Consider ophthalmology and/or neurology consultation pending CVA work-up above (2) Enlarged prostate with lower urinary tract symptoms (LUTS): Plan: - Continue finasteride, tamsulosin (3) GERD without esophagitis: Plan: - Continue famotidine (4) Hypercholesterolemia: Plan: - Not on any lipid lowering therapies at present - Check lipid panel and A1c in AM (5) Peripheral neuropathy: Plan: - Manifests in his feet bilaterally -- reports having EMG/NCT done "years ago" (6) HTN (hypertension): Plan: - Continue amlodipine 2.5mg daily Plan: Code: FULL CODE Diet: HH Dispo: MS/Tele PPX: SCDs History of Present Illness Primary Care Provider: Jhonny Aiken MD 81yoM with history of HLD, HTN, BPH, bilateral cataract corrections "years ago " who presented for painless vision loss in his L eye. Patient says that around 2100, he was sitting on his recliner when he had sudden loss of vision within his left eye except for a "tiny little pinhole" in the superior temporal field. He said that over the hour, his vision started coming back, but only in the superior temporal and superior nasal visual alvarez. In this process, he did endorse seeing flashes of light that subsequently resolved. On the way to the hospital, it started clearing up even more into the lower quadrants, however he said that just below the center of his vision there is a circular area with a "emery cloudy border." This is since remained. He endorses a mild bilateral temporal headache, which he said "feels like my sinuses." No lightheadedness, dizziness, nausea, diplopia. Medications reviewed and include acetaminophen 500 mg as needed, amlodipine 2.5 mg daily, vitamin C 500 mg daily, azelastine 2 sprays as needed, vitamin D3 25 mcg daily, coenzyme every 10 100 mg daily, Lexapro 5 mg daily, famotidine 40 mg daily, finasteride 5 mg daily, meloxicam 15 mg daily as needed, tamsulosin 0.4 mg daily, trazodone 50 mg daily as needed, zinc 50mg daily. In the ED, patient was found to be hypertensive with blood pressure 185/90 with otherwise normal vital signs. Admission CBC, CMP, coagulation panel normal. CT- Head was obtained, which demonstrated (STAT-RAD). ECG demonstrated NSR with LAD. IOPs were checked, and were normal at 11mmHg bilaterally. POC US of the eyes did not reveal evidence of retinal detachment per ED provider. Allergies Allergy/AdvReac Type Severity Reaction Status Date / Time Bactrim Allergy Intermediate RASH Verified 07/01/17 09:50 ITCHING sulfamethoxazole Allergy Intermediate RASH Verified 08/29/21 03:16 ITCHING trimethoprim Allergy Intermediate RASH Verified 08/29/21 03:16 ITCHING prednisone Allergy Mild RASH, Verified 08/29/21 03:16 ITCHING Home Medications Medication Instructions Recorded Confirmed Type triamcinolone acetonide 0.1 % 1 appln TOP BID PRN #30 gm 08/16/19 08/29/21 Rx topical cream ascorbic acid (vitamin C) 500 mg 500 mg PO DAILY #30 cap 03/03/20 08/29/21 Rx capsule betamethasone dipropionate 0.05 % 1 applic TOPICAL BID PRN #15 g 03/03/20 08/29/21 Rx topical cream cholecalciferol (vitamin D3) 25 1,000 unit PO DAILY #30 cap 03/03/20 08/29/21 Rx mcg (1,000 unit) capsule (Vitamin D3) zinc 50 mg tablet 50 mg PO DAILY 05/16/20 08/29/21 History amlodipine 2.5 mg tablet 2.5 mg PO DAILY #90 tab 04/16/21 08/29/21 Rx acetaminophen 500 mg tablet 500 mg PO Q6H PRN 05/26/21 08/29/21 History (Tylenol Extra Strength) famotidine 40 mg tablet 40 mg PO DAILY 30 Days #90 tab 06/24/21 08/29/21 Rx azelastine 137 mcg (0.1 %) nasal 2 spray INTRANASAL BID PRN #30 ml 07/24/21 08/29/21 Rx spray aerosol escitalopram oxalate 5 mg tablet 5 mg PO DAILY #30 tab 07/24/21 08/29/21 Rx finasteride 5 mg tablet 5 mg PO DAILY #90 tab 08/18/21 08/29/21 Rx meloxicam 15 mg tablet 15 mg PO DAILY 08/29/21 08/29/21 History tamsulosin 0.4 mg capsule 0.4 mg PO .HOLD 08/29/21 08/29/21 History trazodone 50 mg tablet 25 mg PO HS PRN 08/29/21 08/29/21 History turmeric 400 mg capsule 0 mg PO DAILY 08/29/21 08/29/21 History Past Med/Surg History Medical History (Updated 08/29/21 @ 05:52 by Hayley Lr DO) Arthritis Atopic dermatitis Changing skin lesion Chronic GERD Chronic rhinitis Generalized osteoarthritis History of basal cell carcinoma Insomnia Medicare annual wellness visit, subsequent Shoulder pain Tremor Surgical History History of cataract surgery History of colonoscopy History of dental surgery History of eye surgery History of hernia repair History of knee replacement BILATERAL History of knee surgery History of laryngoscopy direct laryngoscopy History of neck surgery History of repair of rotator cuff History of shoulder replacement RIGHT Status post biopsy of skin Family History Mother Cancer Other No family history of adverse response to anesthesia No family history of bleeding disorder Denies family history of Family history of deafness and hearing loss Heart disease Allergies Sinusitis Hypertension Stroke Asthma Social History Smoking Status: Former smoker Age Started Using Tobacco: 18; Age Quit Using Tobacco: 29; packs per day: 1; Second Hand Exposure: No; Do You Dip or Chew Tobacco: No; Hx Alcohol Use: No Hx Substance Use: No Preferred Language: Ukrainian Communication Ability: Effective 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 HEENT: NCAT. - Eyes - see below - Mouth - MMM - Neck - supple, no appreciable JVD Cardiac: Normal rate and regular rhythm; S1 and S2 present with no murmurs, rubs, or gallops. Pulmonary: Good respiratory effort with symmetric expansion of the chest. No use of accessory muscles. Lungs were clear to auscultation bilaterally with no crackles or wheezes. Abdominal: Normoactive bowel sounds. Abdomen was soft, nondistended, and non- tender to palpation. Extremities: Upper and lower extremities are warm and well perfused. No peripheral edema in the lower extremities bilaterally Neuro: - Cranial Nerves: CN I, IX, XIII, and X - not assessed. -- II - PERRL. Direct and indirect pupillary reflexes are in-tact. Visual field testing does reveal deficit in the inferior nasal quadrant of the LEFT eye. Undilated funduscopic exam was limited, but of what could be seen, no obvious papilledema -- III/IV/ - EOMs WNL. No nystagmus. V - Facial sensation in tact in all three divisions; jaw opening WNL. VII - Patient is able to smile symmetrically and keep eyes close against resistance. XI - Patient is able to shrug shoulders against resistance. XI - Soft palate raises equally and appropriately while saying "ah." XII - patient is able to stick out tongue and deviate from [id number] appropriately. - Motor: UE - Finger, wrist, elbow, and shoulder strength is 5/5 bilaterally. LE - Hip, knee, and ankle strength is 5/5 bilaterally. - Sensation: UE and LE sensation to light touch is grossly intact bilaterally. - Reflexes - Biceps 2+ b/l; brachioradialis 2+ b/l; triceps 2+ b/l; patellar 2+ b/l; Achilles 2+ b/l. No clonus. - [id number]: WNL b/l. No dysmetria. [id number]-[id number]; WNL b/l. Results & Data Results & Data ([facility]) Vital Signs (Past 12 Hours) Vital Signs Temp Pulse Pulse Resp BP BP Pulse Ox 08/29/21 01:00 56 L 18 176/95 H 97 08/28/21 23:01 36.2 C L 64 18 185/91 H 98 Supervising Physician Co-Signing Physician Notes Patient seen and examined, chart reviewed, case discussed with Dr. Borrero and I agree wtih the assessment and plan as above. In brief, patient is a 81yo male presenting with painless vision loss in left eye. Normal ocular pressures in ER, normal retinal US with no detachment in ER. CT head Negative ?TIA/CVA, ?CRVO/CRAO, less likely retinal detachment -Check CTA Head and Neck -Check MRI Brain -Ophtho consulation appreciated -Remainder as above Resident Activity Tracking Resident Involvement: Resident Care Provided Care Provided: [facility]
[2021-08-29] MEDS ORDERED: ACETAMINOPHEN 325 MG TAB PO PRN (02:10)
[2021-08-29] MEDS ORDERED: OPTIRAY 320 125ml IV ONE (03:57)
[2021-08-29] MEDS ORDERED: AZELASTINE HCL 0.1% NASAL 200 SPRAYS/27,400 MCG BTL PRN (05:43)
[2021-08-29] MEDS ORDERED: traZODone HCL 50 MG TAB PO PRN (05:43)
--- NOTE | 2021-08-29 06:33 | Billing Data ---
Date of Service August 29, 2021 Coding Level of Care Code INT OBSERVATION CARE 50M LVL 2
--- NOTE | 2021-08-29 07:06 | CT Scan Report ---
CT head/brain wo con CLINICAL HISTORY: Stroke Like Symptoms . Left-sided vision loss COMPARISON STUDY: 06/01/2019 CT DOSE: 614.27 mGy.cm TECHNIQUE: Standard CT of the Brain was performed without IV contrast. A dose lowering technique was utilized adhering to the principles of ALARA. FINDINGS: Extraaxial space: There is no evidence for subdural hematoma. There are no extra-axial fluid collecti ons. Ventricles and cisterns: The ventricles are mildly dilated bilaterally. There is no evidence for midl ine shift or mass effect. Parenchyma: There is no subarachnoid or intraparenchymal hemorrhage. There is no evidence for an acut e infarct or cerebral edema. There is mild cerebral cortical atrophy and decreased attenuation in the periventricular white matter representing remote small vessel disease. There are no gross mass lesio ns. Osseous structures: There is no evidence for an acute fracture. The visualized paranasal sinuses are clear. The mastoid air cells are clear bilaterally. Soft tissues: There is no evidence for focal soft tissue swelling. IMPRESSION: 1. No acute intracerebral pathology. 2. Cerebral cortical atrophy and remote small vessel disease are present. ACT 112: Negative or not required by law. Electronically signed by: Nain Mcelroy M.D. 08/29/2021 7:04 AM
--- NOTE | 2021-08-29 07:43 | CT Scan Report ---
CT angio head w con CLINICAL HISTORY: painless L sided vision loss COMPARISON STUDY: CT brain without contrast from 08/29/2021 CT DOSE: 482.69 mGy.cm TECHNIQUE: CT Angio of the brain was performed.followed by image post processing with coronal, and s agittal MIP reformats. Contrast Volume: Optiray 320, 120 ml FINDINGS: Vascular findings: There is normal enhancement within the internal carotid arteries bilaterally. The re is normal enhancement noted within the anterior, middle and posterior cerebral arteries. There is atherosclerotic calcification of the intracranial portions of the internal carotid arteries bilatera lly. Nonvascular findings: There is homogeneous attenuation of the brain parenchyma bilaterally. There is no evidence for an acute infarct or cerebral edema. IMPRESSION: Essentially negative CT angiogram of the brain with contrast. ACT 112: Negative or not required by law. Electronically signed by: Nain Mcelroy M.D. 08/29/2021 7:42 AM
--- NOTE | 2021-08-29 07:45 | CT Scan Report ---
CT angio neck with con CLINICAL HISTORY: painless vision loss COMPARISON STUDY: No previous studies for comparison. CT DOSE: TECHNIQUE: CT Angio of the neck was performed.followed by image post processing with coronal, and sa gittal MIP reformats.. Stenosis assessment by NASCET criteria. Contrast Volume: Optiray 320, 120 ml FINDINGS: Vascular findings: Right common carotid artery: Patent without significant stenosis. Right internal carotid artery: Patent without significant stenosis. Right vertebral artery: Patent without significant stenosis. Left common carotid artery: Patent without significant stenosis. Left internal carotid artery: Patent without significant stenosis. Left vertebral artery: Patent without significant stenosis. Nonvascular findings: The parotid and submandibular salivary glands appear normal. There is no enlarged cervical adenopathy noted. The airway appears patent. The thyroid gland appears within normal limits. The lung apices ap pear within normal limits. Impression: Negative CT angiogram of the neck with contrast. ACT 112: Negative or not required by law. Electronically signed by: Nain Mcelroy M.D. 08/29/2021 7:44 AM
[2021-08-29 07:55] LABS: BUN Creatinine Ratio 22.5 (10-20); Calcium 9.5 mg/dl (8.5-10.1); Chol HDL Ratio 3.1 (0-5); Creatinine Clr Calc Pharmacy 65.1 ml/min; Est GFR (African American) 94.3 ml/min; Est GFR (Non-African American) 81.3 ml/min; Potassium 4.1 mmol/L (3.5-5.1)
[2021-08-29] MEDS ORDERED: ESCITALOPRAM OXALATE 10 MG TAB PO SCH (09:00)
[2021-08-29] MEDS ORDERED: FINASTERIDE 5 MG TAB PO SCH (09:00)
[2021-08-29] MEDS ORDERED: amLODIPine BESYLATE 5 MG TAB PO SCH ×2 (09:00→17:00)
[2021-08-29] MEDS ORDERED: CHOLECALCIFEROL 1,000 UNITS 25 MCG TAB PO SCH (09:00)
[2021-08-29] MEDS ORDERED: FAMOTIDINE 40 MG TABLET PO SCH (09:00)
[2021-08-29] MEDS ORDERED: MELOXICAM 7.5 MG TAB PO SCH ×2 (09:00→17:00)
[2021-08-29] MEDS ORDERED: Nursing to Pharmacy Communication SCH (09:30)
[2021-08-29] MEDS ORDERED: ATORVASTATIN 40 MG TAB PO SCH (10:30)
[2021-08-29 10:36] LABS: Estimated Average Glucose 123 mg/dl; Hemoglobin A1C 5.9 % (4.5-5.6)
--- NOTE | 2021-08-29 12:04 | Hospitalist Progress Note ---
Date of Service August 29, 2021 Assessment & Plan (1) Transient visual loss: Plan: 81yoM with history of HLD, HTN, BPH, bilateral cataract corrections "years ago " who presented for painless vision loss in his L eye. Transient painless vision loss of left eye - Presenting with unilateral L sided painless vision loss that initially manifested as sparing of the superior temporal quadrant, followed by both superior quadrants, and subsequent return of vision with some "blurriness" in his central vision - Constellation of symptoms concerning for potential TIA vs CRAO. Less likely to be multiple sclerosis, temporal arteritis, retinal detachment, glaucoma - Work-up as follows: - CT Head- negative for acute hemorrhage or masses - POC US (ED Provider): No evidence of retinal detachment - IOP is 11mmHg b/l, wnl - ESR/CRP wnl - CTA Head/Neck- no significant stenoses - MRI Brain pending - Continue to allow permissive HTN until further imaging is completed - Neuro checks q4h, will space further pending MRI results - Ophthalmology consulted- hopefully pt can receive evaluation while inpatient but apparently providers may not be available today/tomorrow- will otherwise schedule pt for outpatient f/u on 08/31 (2) Enlarged prostate with lower urinary tract symptoms (LUTS): Plan: - Continue finasteride, tamsulosin (3) GERD without esophagitis: Plan: - Continue famotidine (4) Hypercholesterolemia: Plan: - Lipid profile- total cholesterol 190, LDL 113, HDL 61 - Not on any lipid lowering therapies at present, pt states his PCP has recommended statin therapy before - Initiated atorvastatin 40 mg daily to be continued on discharge for atherosclerotic injury risk reduction (5) Peripheral neuropathy: Plan: - Manifests in his feet bilaterally -- reports having EMG/NCT done "years ago" - Denying neuropathic pain at present (6) HTN (hypertension): Plan: - Continue amlodipine 2.5mg daily - BPs stable, permissive HTN allowed as stroke workup continues (7) Prediabetes: Plan: -A1C 5.9% on admission -BSG stable Plan: Code: FULL CODE Diet: HH Dispo: MS/Tele PPX: SCDs Admission and Anticipated Discharge Date Admission Date: August 29, 2021 Supervising Physician Co-Signing Physician Notes Patient seen and examined with PGY-1 Dr. Barrett. Agree with history, exam findings, assessment and plan of care as outlined with updates. In brief, Mr. Tolliver is a 81 year old male with history of BPH, HTN, HLD, and peripheral neuropathy admitted with transient vision loss in the left eye. Vision has been mostly restored but continues to have deficit in the inferior- middle portion of his visual field. Today, does not have full vision restored--still has some deficit in the inferior middle portion of the visual field. Headache is resolved. 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 No nausea, vomiting. No chest pain. VS and nursing notes reviewed. Visual field deficit left eye, inferior nasal quadrant. Negative pronator drift. Full strength in all extremities. Labs and imaging reviewed. 1. visual field deficit concerning for amaurosis fugax vs CRAO. CT Head with cerbral cortical atrophy, remote small vessel disease, POCUS in the ED without signs of retinal detachment, intraocular pressure in the normal range. ESR and CRP negative. CTA Head and Neck without significant stenosis. MRI brain pending. It sounds like a slit lap exam was attempted in the ED, but we do not have the results. Consulted Ophtho for eval--appreciate recommendations. In the meantime, treating this as TIA/CVA. Permissive hypertension, medical optimization. LDL 113. Start high intensity statin. 2. pre-diabetes. A1C 5.9%. 3. HTN. BPs are in a reasonable range. Hold home amlodipine 2.5mg for now to allow for permissive hypertension. 4. BPH with LUTS. Continue home finasteride and tamsulosin. Other chronic issues are stable and home medications continued. Dispo: pending completion of work up and Ophtho evaluation. If Ophtho is not able to come to the hospital over the weekend, will try to get him an appointment for Tuesday morning, Subjective No acute events overnight. On evaluation, pt reports his vision is still somewhat blurry- reports a "emery" spot in the inferior middle portion of left eye's field of vision. Denies any eye pain. Denies any further incidents of vision loss since his initial one on admission. Reports his mild bilateral temporal headache on admission has slightly improved with Tylenol PRN earlier this AM. Denies any lack of sensation or weakness, slurred speech. Review of Systems Review of Systems: Per subjective Physical Exam Physical Exam: General: 81-year old male who is alert, oriented, and appears in no acute distress. HEENT: NCAT, EOMI, PERRLA, moist mucous membranes Cardiac: Normal rate and regular rhythm; S1 and S2 present with no murmurs, rubs, or gallops. Pulmonary: Good respiratory effort with symmetric expansion of the chest. No use of accessory muscles. Lungs were clear to auscultation bilaterally with no crackles or wheezes. Neuro: -- CNII - PERRL. Direct and indirect pupillary reflexes are intact. Visual field testing does reveal deficit in the inferior nasal quadrant of the LEFT eye and lesser deficit in the superior nasal quadrant of the LEFT EYE -- CNIII/IV/ - EOMI, no nystagmus. - Motor: No gross focal motor deficits. No pronator drift bilaterally - Sensation: UE sensation to light touch is grossly intact bilaterally Results & Data Results & Data ([facility]) Vital Signs (Past 12 Hours) Vital Signs Temp Pulse Pulse Resp BP Pulse Ox 08/29/21 10:52 36.7 C 57 L 18 146/77 H 96 08/29/21 08:35 65 17 145/72 H 97 08/29/21 04:43 72 08/29/21 04:28 36.2 C L 58 L 18 176/90 H 97 08/29/21 03:00 55 L 18 137/83 97 08/29/21 01:00 56 L 18 176/95 H 97 Resident Activity Tracking Resident Involvement: Resident Care Provided Care Provided: Adult Hospital Medicine
--- NOTE | 2021-08-29 13:16 | Electrocardiogram Report ---
Test Reason : Blood Pressure : / mmHG Vent. Rate : 054 BPM Atrial Rate : 054 BPM P-R Int : 178 ms QRS Dur : 098 ms QT Int : 410 ms P-R-T Axes : 005 -58 040 degrees QTc Int : 388 ms Sinus bradycardia Left axis deviation Incomplete right bundle branch block Abnormal ECG When compared with ECG of 13-JUN-2017 12:49, Sinus rhythm has replaced Ectopic atrial rhythm Confirmed by Cj Adams ([id number]) on 08/29/2021 1:15:25 PM Referred By: REFERRED SELF Confirmed By:Cj Adams
--- NOTE | 2021-08-29 15:12 | Magnetic Resonance Report ---
MRI OF THE BRAIN WITHOUT CONTRAST CLINICAL HISTORY: painless vision loss COMPARISON STUDY: Head CT and CTA of the head August 29, 2021. TECHNIQUE: Utilizing a 1.5 Isabel magnet and dedicated coil, multiplanar, multiecho imaging of the bra in was performed without IV contrast. FINDINGS: There are no foci of restricted diffusion to suggest acute infarct. No acute intracranial h emorrhage, midline shift or mass effect is present. Ventricular system is unremarkable. Basal cistern s are patent. There are no extra axial collections. Flow-voids for the major intracranial vessels are present. Scattered small white matter T2 hyperintense foci suggest mild small vessel disease. There is moderate atrophy. Calvarial signal is normal. Orbits are unremarkable on this unenhanced exam. The re is no evidence for sinusitis. There is no mastoid fluid. IMPRESSION: No acute intracranial findings. ACT 112: Negative or not required by law. Electronically signed by: Marshall Torres M.D. 08/29/2021 3:10 PM
--- NOTE | 2021-08-29 16:13 | Discharge Summary ---
Date of Service August 29, 2021 Admission HPI Per Admitting Provider 81yoM with history of HLD, HTN, BPH, bilateral cataract corrections "years ago " who presented for painless vision loss in his L eye. Patient says that around 2100, he was sitting on his recliner when he had sudden loss of vision within his left eye except for a "tiny little pinhole" in the superior temporal field. He said that over the hour, his vision started coming back, but only in the superior temporal and superior nasal visual alvarez. In this process, he did endorse seeing flashes of light that subsequently resolved. On the way to the hospital, it started clearing up even more into the lower quadrants, however he said that just below the center of his vision there is a circular area with a "emery cloudy border." This is since remained. He endorses a mild bilateral temporal headache, which he said "feels like my sinuses." No lightheadedness, dizziness, nausea, diplopia. Medications reviewed and include acetaminophen 500 mg as needed, amlodipine 2.5 mg daily, vitamin C 500 mg daily, azelastine 2 sprays as needed, vitamin D3 25 mcg daily, coenzyme every 10 100 mg daily, Lexapro 5 mg daily, famotidine 40 mg daily, finasteride 5 mg daily, meloxicam 15 mg daily as needed, tamsulosin 0.4 mg daily, trazodone 50 mg daily as needed, zinc 50mg daily. In the ED, patient was found to be hypertensive with blood pressure 185/90 with otherwise normal vital signs. Admission CBC, CMP, coagulation panel normal. CT- Head was obtained, which demonstrated (STAT-RAD). ECG demonstrated NSR with LAD. IOPs were checked, and were normal at 11mmHg bilaterally. POC US of the eyes did not reveal evidence of retinal detachment per ED provider. Admission Exam Per Admitting Provider General: 81-year old male who is alert, oriented, and appears in no acute distress. HEENT: NCAT. - Eyes - see below - Mouth - MMM - Neck - supple, no appreciable JVD Cardiac: Normal rate and regular rhythm; S1 and S2 present with no murmurs, rubs, or gallops. Pulmonary: Good respiratory effort with symmetric expansion of the chest. No use of accessory muscles. Lungs were clear to auscultation bilaterally with no crackles or wheezes. Abdominal: Normoactive bowel sounds. Abdomen was soft, nondistended, and non-tender to palpation. Extremities: Upper and lower extremities are warm and well perfused. No peripheral edema in the lower extremities bilaterally Neuro: - Cranial Nerves: CN I, IX, XIII, and X - not assessed. -- II - PERRL. Direct and indirect pupil regla reflexes are in-tact.Visual field testing does reveal deficit in the inferior nasal quadrant of the LEFT eye. Undilated funduscopic exam was limited, but of what could be seen, no obvious papilledema -- III/IV/ - EOMs WNL. No nystagmus. V - Facial sensation in tact in all three divisions; jaw opening WNL. VII - Patient is able to smile symmetrically and keep eyes close against resistance. XI - Patient is able to shrug shoulders against resistance. XI - Soft palate r aises equally and appropriately while saying "ah." XII - patient is able to stick out tongue and deviate from [id number] appropriately. - Motor: UE - Finger, wrist, elbow, and shoulder strength is 5/5 bilaterally. LE - Hip, knee, and ankle strength is 5/5 bilaterally. - Sensation: UE and LE sensation to ligh t touch is grossly intact bilaterally. - Reflexes - Biceps 2+ b/l; brachioradia lis 2+ b/l; triceps 2+ b/l; patellar 2+ b/l; Achilles 2+ b/l. No clonus. - [id number]: WNL b/l. No dysmetria. [id number]; WNL b/l. Principal Diagnosis Painless vision loss Discharge Exam General: 81-year old male who is alert, oriented, and appears in no acute distress. HEENT: NCAT, EOMI, PERRLA, moist mucous membranes Cardiac: Normal rate and regular rhythm; S1 and S2 present with no murmurs, rubs, or gallops. Pulmonary: Good respiratory effort with symmetric expansion of the chest. No use of accessory muscles. Lungs were clear to auscultation bilaterally with no crackles or wheezes. Neuro: -- CNII - PERRL. Direct and indirect pupillary reflexes are intact. Visual field testing does reveal deficit in the inferior nasal quadrant of the LEFT eye and lesser deficit in the superior nasal quadrant of the LEFT EYE -- CNIII/IV/ - EOMI, no nystagmus. - Motor: No gross focal motor deficits. No pronator drift bilaterally - Sensation: UE sensation to light touch is grossly intact bilaterally Discharge Data Allergies Allergy/AdvReac Type Severity Reaction Status Date / Time Bactrim Allergy Intermediate RASH Verified 07/01/17 09:50 ITCHING sulfamethoxazole Allergy Intermediate RASH Verified 08/29/21 03:16 ITCHING trimethoprim Allergy Intermediate RASH Verified 08/29/21 03:16 ITCHING prednisone Allergy Mild RASH, Verified 08/29/21 03:16 ITCHING Consultations 08/29/21 03:21 ED Decision to Admit Stat Ordered Studies 08/29/21 00:26 CT head/brain wo con Urgent 08/29/21 02:10 CT angio head w con Urgent 08/29/21 02:12 MR brain wo con Routine 08/29/21 02:20 CT angio neck with con Urgent Hospital Course (1) Transient visual loss: 81yoM with history of HLD, HTN, BPH, bilateral cataract corrections "years ago " who presented for painless vision loss in his L eye. Transient painless vision loss of left eye - Presenting with unilateral L sided painless vision loss that initially manifested as sparing of the superior temporal quadrant, followed by both superior quadrants, and subsequent return of vision with some "blurriness" in his central vision - Constellation of symptoms concerning for potential TIA vs CRAO. Less likely to be multiple sclerosis, temporal arteritis, retinal detachment, glaucoma - Work-up as follows: - CT Head- negative for acute hemorrhage or masses - POC US (ED Provider): No evidence of retinal detachment - IOP is 11mmHg b/l, wnl - ESR/CRP wnl - CTA Head/Neck- no significant stenoses - MRI Brain- negative for acute process - Allowed permissive HTN, highest BP was 185/91 - Ophthalmology consulted- unfortunately providers were not able to evaluate patient while inpatient. Ophthalmology office number provided to patient with instructions to call and schedule an appointment on 08/31 in addition to close PCP follow up. (2) Enlarged prostate with lower urinary tract symptoms (LUTS): - Continued finasteride, tamsulosin (3) GERD without esophagitis: - Continued famotidine (4) Hypercholesterolemia: - Lipid profile- total cholesterol 190, LDL 113, HDL 61 - Not on any lipid lowering therapies at present, pt states his PCP has recommended statin therapy before - Initiated atorvastatin 40 mg daily to be continued on discharge for atherosclerotic injury risk reduction - Check liver function labs as outpatient while on statin therapy (5) Peripheral neuropathy: - Manifests in his feet bilaterally -- reports having EMG/NCT done "years ago" - Denying neuropathic pain at present (6) HTN (hypertension): - Continued amlodipine 2.5mg daily - BPs stable, permissive HTN was allowed as stroke workup continues (7) Prediabetes: -A1C 5.9% on admission -BSG stable during stay Total Time Total Time Spent Total Time Spent (In Minutes): 30 Discharge Plan Discharge Items Patient Disposition: Home - Self-Care Reason For Visit: PAINLESS VISION LOSS Discharge Diagnosis: Painless vision loss Activity: Per Instructions section Non-emergency contact: Primary Care Provider and Film Cutter Call non-emergency contact if: you have any medication questions, your symptoms worsen and your pain is worsening Follow-up/Referrals: Jhonny Aiken MD [Primary Care Provider] - Leroy Lugo MD [Physician] - Diet: Low Fat Addtl Attending Provider Instructions: You were admitted to the hospital for painless vision loss. We did an extended workup to discover the cause of your symptoms. Thankfully, the CT scans and MRI did not suggest bleeding in the brain or other stroke. However, your symptoms are concerning for conditions involving blocked blood flow to the arteries supplying the eye. We were hoping to get an ophthalmology evaluation today but unfortunately they were not available. However, it is crucial you are evaluated by ophthalmology to further determine the cause of your vision loss. A discharge summary will be sent to your primary care physician to ensure continuity of care. Please bring this discharge summary with you to your next office appointment so that your provider can review it at that time. Please do not drive until you are evaluated and cleared to do so by both the facility sales and admin and Dr. Aiken. Follow-up appointments: Make a follow-up appointment with your PCP within the next week. It is very important that you follow up with them shortly after discharge from the hospital.] Please call [phone] to schedule an ophthalmology appointment. Their office opens at 8 AM on Thursday 08/31 Keep all your follow-up appointments as already scheduled. If you cannot make an appointment, notify your provider. Medications: Your medication list has been reviewed and reconciled upon discharge to ensure accuracy and continuity of care. An updated list of all your medications is included with your hospital discharge paperwork. Please review this list closely, and make note of any changes. We sent a new medication called atorvastatin to the pharmacy. This is a cholesterol-lowering medication which will help reduce the clogging of arteries in your body, including those that supply the eyes. Please take atorvastatin 40 mg once a day. You may notice some muscle aches as you continue to remain on this medication. Please alert your PCP if that occurs. Take your medications as instructed; do not skip a dose of your medicines. Make sure all of your doctors know every medicine you are taking (including fnwe-yvm-qaauuna medicines, vitamins, and supplements). Call your primary care provider before taking any new medicin es (including qlyx-otr-oabwyyi medicines, vitamins, and supplements), because some of these may interact with your current medications, or may make your symptoms worse. Tell your primary care provider if you cannot afford your medications. CONTACT YOUR PRIMARY CARE PROVIDER if you experience any of the following: Vision change- blurry vision, vision loss Eye pain Dizziness Headache Jaw pain Difficulty following your treatment plan, or difficulty taking medications CALL 911 OR GO TO THE EMERGENCY DEPARTMENT if you experience any of the following: Extended vision loss Sudden weakness, numbness or slurred speech Sudden, severe abdominal pain or nausea/vomiting Severe chest pain, or chest pain that radiates (moves) to your jaw or arm Sudden, severe shortness of breath or difficulty breathing Thank you for allowing us to participate in your care. Pending Studies at Discharge: No Stand-Alone Forms: [facility] [place] [employer], Smoking Cessation Medications and DC Order Prescriptions: New atorvastatin 40 mg tablet 40 mg PO DAILY Qty: 30 RF: 0 Continued famotidine 40 mg tablet 40 mg PO DAILY 30 Days Qty: 90 RF: 3 finasteride 5 mg tablet 5 mg PO DAILY Qty: 90 RF: 3 ascorbic acid (vitamin C) 500 mg capsule 500 mg PO DAILY Qty: 30 RF: 0 cholecalciferol (vitamin D3) [Vitamin D3] 25 mcg (1,000 unit) capsule 1,000 unit PO DAILY Qty: 30 RF: 0 betamethasone dipropionate 0.05 % cream 1 applic topical BID PRN (Reason: skin irritation) Qty: 15 RF: 11 azelastine 137 mcg (0.1 %) aerosol,spray 2 spray intranasal BID PRN (Reason: nasal congestion) Qty: 30 RF: 11 escitalopram oxalate 5 mg tablet 5 mg PO DAILY Qty: 30 RF: 11 amlodipine 2.5 mg tablet 2.5 mg PO DAILY Qty: 90 RF: 3 triamcinolone acetonide 0.1 % cream 1 appln TOP BID PRN (Reason: itch) Qty: 30 RF: 5 acetaminophen [Tylenol Extra Strength] 500 mg tablet 500 mg PO Q6H PRN (Reason: Pain) RF: 0 zinc 50 mg Tablet 50 mg PO DAILY RF: 0 turmeric 400 mg Capsule 0 mg PO DAILY RF: 0 trazodone 50 mg tablet 25 mg PO HS PRN (Reason: insomnia) RF: 0 meloxicam 15 mg tablet 15 mg PO DAILY RF: 0 tamsulosin 0.4 mg capsule 0.4 mg PO .HOLD RF: 0 Discharge Orders: Discharge Order (Routine); Ordered 08/29/21 Ordered By: Meredith Barrett Admission Data Admit Date/Time: 08/29/21 02:10 Attending Provider: Lu Mcleod Admit Provider: Dusty Borrero Primary Care Provider: Jhonny Aiken Other Providers: Susana Scott Other Interventions: Discharge Summary Assessment (RN) Last Done: 08/29/21 16:35 Supervising Physician Co-Signing Physician Notes Patient seen and examined with PGY-1 Dr. Barrett. Agree with history, exam findings, assessment and plan of care as outlined with updates. In brief, Mr. Tolliver is a 81 year old male with history of BPH, HTN, HLD, and peripheral neuropathy admitted with transient vision loss in the left eye. Vision has been mostly restored but continues to have deficit in the inferior- middle portion of his visual field. Today, does not have full vision restored--still has some deficit in the inferior middle portion of the visual field. Headache is resolved. 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 No nausea, vomiting. No chest pain. VS and nursing notes reviewed. Visual field deficit left eye, inferior nasal quadrant. Negative pronator drift. Full strength in all extremities. Labs and imaging reviewed. 1. visual field deficit concerning for amaurosis fugax vs CRAO. CT Head with cerbral cortical atrophy, remote small vessel disease, POCUS in the ED without signs of retinal detachment, intraocular pressure in the normal range. ESR and CRP negative. CTA Head and Neck without significant stenosis. MRI without any acute ischemic changes. It sounds like a slit lap exam was attempted in the ED, but we do not have the results. Consulted Ophtho for eval--appreciate recommendations. Unfortunately, it does not appear that ophtho will be able to see the patient while he is admitted this weekend and he is asking to go home. In the meantime, treating this as TIA/CVA. Permissive hypertension, medical optimization. LDL 113. Start high intensity statin. 2. pre-diabetes. A1C 5.9%. Can follow up with PCP on this. 3. HTN. BPs are in a reasonable range. Held home amlodipine while admitted but can restart on discharge. 4. BPH with LUTS. Continue home finasteride and tamsulosin. Other chronic issues are stable and home medications continued. Dispo: discharge home this evening. Follow up with ophtho on Tuesday. Follow up with PCP in 1-2 weeks. No driving. I personally spent 40 minutes discharge planning for this patient.
== END 2021-08-29 17:09 | disposition home or self-care (01) ==
LOC: 2S 22:59 → ED 22:59 → SUATTDRO 08-29 02:10 → 2S 08-29 03:38
DX: Z79.899 Other long term (current) drug therapy; H53.122 Transient visual loss, left eye; Z88.2 Allergy status to sulfonamides; Z87.891 Personal history of nicotine dependence; G45.9 Transient cerebral ischemic attack, unspecified; I10 Essential (primary) hypertension; Z88.8 Allergy status to other drugs, medicaments and biological substances; G90.09 Other idiopathic peripheral autonomic neuropathy; N40.1 Benign prostatic hyperplasia with lower urinary tract symptoms; E78.00 Pure hypercholesterolemia, unspecified; K21.9 Gastro-esophageal reflux disease without esophagitis